=== PATIENT | female | born 1975 | race Caucasian/White ===

== ENCOUNTER 2021-11-19 10:57 | Emergency (ER) | payer MEDICAID, OTHER ==
[~2021-11-19] VITALS: Ht 160 cm; Wt 96.3 kg
[2021-11-19 11:10] VITALS: BP 122/90
--- NOTE | 2021-11-19 11:34 | NUR ---
46 Y/O FEMALE C/O PAIN TO LEFT SIDE ARM, LEG, KNEE FROM S/P FALL. PATIENT FELL AT WORK. PATIENT DENIES HITTING HEAD OR LOSS OF CONCIOUSNESS. BLOOD SUGAR IS 112 AT THIS TIME. MEDICAL HISTORY: HTN, DM,HLD NKDA
--- NOTE | 2021-11-19 11:41 | NUR ---
DR. COUGHLIN EVALUATING PATIENT AT BEDSIDE.
[2021-11-19] MEDS ORDERED: ACETAMINOPHEN 325 MG TAB PO ONE (11:45)
[2021-11-19] MEDS ORDERED: HYDROcodone/APAP 5/325 MG 1 TAB TAB PO ONE (11:45)
[2021-11-19] MEDS ORDERED: KETOROLAC 30 MG/ML VIAL IM ONE (11:45)
--- NOTE | 2021-11-19 12:09 | NUR ---
PATIENT TAKEN VIA GURNEY TO RADIOLOGY
--- NOTE | 2021-11-19 12:27 | NUR ---
Davon chavez in ED - 11/19/21 at 1238 by [email or web address] PT TAKEN TO ER BED 3 VIA HOWARD FROM XR.
--- NOTE | 2021-11-19 12:27 | NUR ---
PT TAKEN TO ER BED 4 VIA GURNEY FROM XR.
[2021-11-19 13:10] VITALS: BP 113/70
--- NOTE | 2021-11-19 13:42 | NUR ---
Patient discharged with v/s stable. Written and verbal after care instructions given. Patient verbalized understanding. Ambulatory with steady gait. All questions addressed prior to discharge. Advised to follow up with PMD. WORK NOTE HANDED TO PATIENT.
--- NOTE | 2021-11-19 14:04 | NUR ---
The patient's care was reviewed and supervised by Radha Nunez RN.
== END 2021-11-19 13:40 | disposition home or self-care (01) ==
LOC: MED 10:57
DX: S40.012A Contusion of left shoulder, initial encounter (principal); S70.02XA Contusion of left hip, initial encounter; W18.30XA Fall on same level, unspecified, initial encounter; Y93.89 Activity, other specified; Y92.89 Other specified places as the place of occurrence of the external cause; Y99.8 Other external cause status
CPT/HCPCS: 73030; 73080; 73110; 73502; 73562; 81025; 82948; 96372; 99284; J1885